=== PATIENT | female | born 1950 | race Two or more races ===

== ENCOUNTER 2019-01-28 08:00 | Outpatient (CLI) | payer MEDICARE, OTHER ==
[2019-01-28] MEDS ORDERED: [UNRECOGNIZED DRUG - OTHER] PO (09:53)
[2019-01-28] MEDS ORDERED: zypan PO (09:53)
[2019-01-28] MEDS ORDERED: HYDROCHLOROTH12.5 MG PO (09:53)
[2019-01-28] MEDS ORDERED: LOSA50TA14 PO (09:53)
[2019-01-28] MEDS ORDERED: LEVO88TA4 PO (09:53)
[2019-01-28] MEDS ORDERED: vitamin b 12 PO (09:53)
== END 2019-01-28 23:59 | disposition home or self-care (01) ==
LOC: STAR 08:00
PROVIDERS: ATTEND Internal Medicine Gastroenterology
DX: Z01.818 Encounter for other preprocedural examination (principal); K86.2 Cyst of pancreas
CPT/HCPCS: 36415; 80053; 83690; 85025; 85610; 85730; 86301; 93005